=== PATIENT | female | born 1995 | race African-American/Black ===

== ENCOUNTER 2017-08-07 02:51 | Emergency (ER) | payer OTHER ==
[~2017-08-07] VITALS: Ht 165.1 cm; Wt 71.0 kg
[~2017-08-07 02:51] MED LIST: CLIN150 PO; DICL50TA3 PO
[2017-08-07] MEDS ORDERED: IOHEXOL 350 MG/ML 10 ML VIAL (for RAD DIAG) IVCONTRAST ONE (02:52)
[2017-08-07 02:53] VITALS: BP 114/55; PULSE 119; RESP 20; TEMP 102.2; O2SAT 98
[2017-08-07] MEDS ORDERED: SODIUM CHLOR 0.9% 1000 ML INJ 1,000 ML IV SCH (03:14)
[2017-08-07] MEDS ORDERED: SODIUM CHLORIDE 0.9% FLUSH 10 ML FLUSH IV FLUSH PRN (03:15)
[2017-08-07] MEDS ORDERED: ACETAMINOPHEN 325 MG TAB PO ONE (03:15)
[2017-08-07] MEDS ORDERED: METOCLOPRAMIDE HCL 10 MG/2 ML VIAL IV PUSH ONE (03:15)
[2017-08-07] MEDS ORDERED: KETOROLAC TROMETHAMINE 30 MG/ML (IVP) VIAL IV PUSH ONE (03:15)
--- NOTE | 2017-08-07 03:27 | PD ---
HPI Chief Complaint: Cold / Flu Symptoms Time Seen by Provider: 03:08 Travel History International Travel<30 days: No Contact w/Intl Traveler<30days: No Traveled to known affect area: No History of Present Illness HPI 22-year-old female here for evaluation of fever, chills, nausea, vomiting, headache, generalized malaise, abdominal pain. The patient is an employee here at the hospital. States that her son is admitted to the pediatric floor and diagnosed with Shigella. Patient's symptoms started yesterday. She has had about 4-5 episodes of loose bowel movements that she reports are nonbloody. She feels nauseous but has not vomited. Headache is diffuse, moderate, pressure -like. She has intermittent abdominal pain and states that it hurts her when she has to use a restroom. No urinary symptoms. No cough. PFSH Past Medical History Medical History: Denies Significant Hx Immunizations Current: Yes ?: Not LMP: 07/01/17 Menopausal: No Past Surgical History Surgical History: No Previous Surgery Social History Alcohol Use: No Tobacco Use: No Substance Use: No Allergies-Medications (Allergen,Severity, Reaction): Coded Allergies: No Known Allergies (Verified Adverse Reaction, Unknown, 08/07/17) Reported Meds & Prescriptions Reported Meds & Active Scripts Active Cipro (Ciprofloxacin HCl) 500 Mg Tab 500 Mg PO BID [address] (Diclofenac Sodium) 50 Mg Tabdr 50 Mg PO TID Cleocin (Clindamycin HCl) 150 Mg Cap 150 Mg PO Q6H Review of Systems Except as stated in HPI: all other systems reviewed are Neg Physical Exam Narrative GENERAL: Well-developed, well-nourished, pleasant, no apparent distress. SKIN: Focused skin assessment warm/dry. No rash. HEAD: Atraumatic. Normocephalic. EYES: Pupils equal and round. No scleral icterus. No injection or drainage. ENT: No nasal bleeding or discharge. Mucous membranes pink and dry. Normal pharynx. Bilateral tympanic membranes and external auditory canals are normal. NECK: Trachea midline. No JVD. No nuchal rigidity. CARDIOVASCULAR: Tachycardic, rate 110, regular. RESPIRATORY: No accessory muscle use. Clear to auscultation. Breath sounds equal bilaterally. GASTROINTESTINAL: Abdomen soft, nondistended. Mild diffuse tenderness without peritoneal signs. Normal bowel sounds. MUSCULOSKELETAL: No obvious deformities. No clubbing. No cyanosis. No edema. NEUROLOGICAL: Awake and alert. No obvious cranial nerve deficits. Motor grossly within normal limits. Normal speech. PSYCHIATRIC: Appropriate mood and affect; insight and judgment normal. Data Data Last Documented VS Vital Signs Date Time Temp Pulse Resp B/P (MAP) Pulse Ox O2 Delivery O2 Flow Rate FiO2 08/07/17 02:53 102.2 119 20 114/55 (74) 98 Orders Orders Complete Blood Count With Diff (08/07/17 03:14) Comprehensive Metabolic Panel (08/07/17 03:14) Lipase (08/07/17 03:14) Prothrombin Time / Inr (Pt) (08/07/17 03:14) Act Partial Throm Time (Ptt) (08/07/17 03:14) Urinalysis - C+S If Indicated (08/07/17 03:14) Ct Abd/Pel W Iv Contrast(Rout) (08/07/17 03:14) Iv Access Insert/Monitor (08/07/17 03:14) Ecg Monitoring (08/07/17 03:14) Oximetry (08/07/17 03:14) Sodium Chlor 0.9% 1000 Ml Inj (Ns 1000 M (08/07/17 03:14) Sodium Chloride 0.9% Flush (Ns Flush) (08/07/17 03:15) Ed Urine Pregnancytest Poc (08/07/17 03:14) Acetaminophen (Tylenol) (08/07/17 03:15) Metoclopramide Inj (Reglan Inj) (08/07/17 03:15) Ketorolac Inj (Toradol Inj) (08/07/17 03:15) Influenzae A/B Antigen (08/07/17 03:14) Group A Rapid Strep Screen (08/07/17 03:14) Stool Ova And Parasite Screen (08/07/17 03:14) Stool Wbc (Leukocytes) (08/07/17 03:14) Enteric Path (Stool) (08/07/17 03:14) C Diff Toxin Pcr (08/07/17 03:14) Oral Contrast - Adult (08/07/17 03:19) Diatrizoate Liq ( Gastroadithya Liq) (08/07/17 03:45) Strep Culture (Group A) (08/07/17 03:30) Iohexol 350 Inj (Omnipaque 350 Inj) (08/07/17 02:52) Ceftriaxone Inj (Rocephin Inj) (08/07/17 06:00) Ciprofloxacin (Cipro) (08/07/17 06:00) Labs Laboratory Tests Test 08/07/17 03:30 08/07/17 05:00 White Blood Count 4.7 TH/MM3 Red Blood Count 4.14 MIL/MM3 Hemoglobin 12.2 GM/DL Hematocrit 35.9 % Mean Corpuscular Volume 86.8 FL Mean Corpuscular Hemoglobin 29.5 PG Mean Corpuscular Hemoglobin Concent 33.9 % Red Cell Distribution Width 12.6 % Platelet Count 169 TH/MM3 Mean Platelet Volume 9.1 FL Neutrophils (%) (Auto) 79.7 % Lymphocytes (%) (Auto) 10.3 % Monocytes (%) (Auto) 9.9 % Eosinophils (%) (Auto) 0.0 % Basophils (%) (Auto) 0.1 % Neutrophils # (Auto) 3.7 TH/MM3 Lymphocytes # (Auto) 0.5 TH/MM3 Monocytes # (Auto) 0.5 TH/MM3 Eosinophils # (Auto) 0.0 TH/MM3 Basophils # (Auto) 0.0 TH/MM3 CBC Comment DIFF FINAL Differential Comment Prothrombin Time 11.4 SEC Prothromb Time International Ratio 1.1 RATIO Activated Partial Thromboplast Time 27.6 SEC Urine Color YELLOW Urine Turbidity HAZY Urine pH 5.5 Urine Specific [place] 1.034 Urine Protein TRACE mg/dL Urine Glucose (UA) NEG mg/dL Urine Ketones NEG mg/dL Urine Occult Blood NEG Urine Nitrite NEG Urine Bilirubin NEG Urine Urobilinogen 2.0 MG/DL Urine Leukocyte Esterase MOD Urine WBC 2 /hpf Urine Squamous Epithelial Cells 74 /hpf Urine Bacteria RARE /hpf Urine Mucus MANY /lpf Microscopic Urinalysis Comment CULT NOT INDICATED Blood Urea Nitrogen 13 MG/DL Creatinine 0.83 MG/DL Random Glucose 105 MG/DL Total Protein 7.5 GM/DL Albumin 3.7 GM/DL Calcium Level 8.3 MG/DL Alkaline Phosphatase 86 U/L Aspartate Amino Transf (AST/SGOT) 10 U/L Alanine Aminotransferase (ALT/SGPT) 15 U/L Total Bilirubin 0.5 MG/DL Sodium Level 139 MEQ/L Potassium Level 3.4 MEQ/L Chloride Level 108 MEQ/L Carbon Dioxide Level 24.5 MEQ/L Anion Gap 7 MEQ/L Estimat Glomerular Filtration Rate 102 ML/MIN Lipase 97 U/L [facility] Medical Decision Making Medical Screen Exam Complete: Yes Emergency Medical Condition: Yes Differential Diagnosis Shigella, influenza, sepsis, viral illness, appendicitis, acute intra-abdominal pathology, dehydration, metabolic abnormality Narrative Course Initial vital signs show heart rate 119, blood pressure 114/55, pulse ox 98% on room air, oral temp of 102.2F. CBC: WBC 4.7, hemoglobin 12.2, hematocrit 35.9, platelets 169, neutrophils 79.7% . CMP is unremarkable. Lipase 97. UA: Rare bacteria, many mucus, moderate leuk esterase, negative nitrites. Influenza is negative. Group A strep is negative. CT abdomen pelvis: CONCLUSION: 1. Prominent left ovary. 2. Otherwise negative CT abdomen/pelvis with contrast. Patient was given a liter normal saline IV, IV Toradol, Tylenol, and on reassessment feels significantly improved. She was made aware of all findings. She states that her son did test positive for Shigella. She does not have bloody bowel movements, however she has been in contact with her son who is admitted to the pediatric floor here. Because of this exposure, I will give the patient a dose of 1 g of IV Rocephin here and will start her on Cipro. She was advised to stay hydrated with plenty of fluids and follow up with her primary care physician and organization development consultant this week. She was advised on when to return to the emergency department. She verbalizes understanding and agreement with plan. 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 Follow-up with your organization development consultant this week. See hydrated with plenty of fluids. Return to the emergency department for worsening symptoms or any other concerns. Scripts Ondansetron Odt (Zofran Odt) 4 Mg Tab 4 MG SL Q8HR Y for Nausea/Vomiting, #20 TAB 0 Refills Prov: Abhijeet Bentley MD 08/07/17 Ciprofloxacin (Cipro) 500 Mg Tab 500 MG PO BID for Infection for 7 Days, #14 TAB 0 Refills Prov: Abhijeet Bentley MD 08/07/17 Disposition: 01 DISCHARGE HOME Condition: Stable Abhijeet Bentley MD Aug 07, 2017 03:27
[2017-08-07] MEDS ORDERED: DIATRIZOATE MEGLUM/DIATRIZOATE SOD 9 ML CUP PO ONE (03:45)
[2017-08-07 03:49] LABS: AUTOMATED NEUTROPHIL # 3.7 TH/MM3 (1.8-7.7); BASOPHIL % 0.1 % (0.0-2.0); HEMATOCRIT 35.9 % (35.0-46.0); HEMOGLOBIN 12.2 GM/DL (11.6-15.3); LYMPH % 10.3 % (9.0-44.0); LYMPHOCYTE # 0.5 TH/MM3 (1.0-4.8); MEAN CELL VOLUME 86.8 FL (80.0-100.0); MEAN CORPUSCULAR HEMOGLOBIN 29.5 PG (27.0-34.0); MEAN CORPUSCULAR HGB CONC 33.9 % (32.0-36.0); MEAN PLATELET VOLUME 9.1 FL (7.0-11.0); MONO % 9.9 % (0.0-8.0); MONOCYTE # 0.5 TH/MM3 (0-0.9); NEUT % 79.7 % (16.0-70.0); PLATELET COUNT 169 TH/MM3 (150-450); RED BLOOD COUNT 4.14 MIL/MM3 (4.00-5.30); RED CELL DISTRIBUTION WIDTH 12.6 % (11.6-17.2); WHITE BLOOD COUNT 4.7 TH/MM3 (4.0-11.0)
[2017-08-07 04:01] LABS: BACTERIA, URINE RARE /hpf; BILIRUBIN, URINE NEG (NEG); BLOOD, URINE NEG (NEG); GLUCOSE,URINE NEG (NEG); KETONE, URINE NEG (NEG); MUCUS URINE MANY /lpf (OCC); NITRITE,URINE NEG (NEG); PH, URINE 5.5 (5.0-8.5); SQUAMOUS EPITHELIAL CELL URINE 74 /hpf (0-5); URINE COLOR YELLOW (YELLW/STRAW); URINE LEUKOCYTE ESTERASE MOD (NEG)
[2017-08-07 04:08] LABS: INTERNATIONAL NORMALIZED RATIO 1.1 RATIO; PROTHROMBIN TIME - PATIENT 11.4 SEC (9.8-11.6)
[2017-08-07 04:10] LABS: ALBUMIN 3.7 GM/DL (3.4-5.0); ALT (GPT) 15 U/L (10-53); AST (GOT) 10 U/L (15-37); BICARBONATE 24.5 MEQ/L (21.0-32.0); BLOOD UREA NITROGEN 13 MG/DL (7-18); CALCIUM 8.3 MG/DL (8.5-10.1); CHLORIDE 108 MEQ/L (98-107); CREATININE 0.83 MG/DL (0.50-1.00); GLOMERULAR FILTRATION RATE 102 ML/MIN (>89); GLUCOSE,RANDOM 105 MG/DL (74-106); SODIUM (NA) 139 MEQ/L (136-145)
[2017-08-07 04:12] LABS: ALKALINE PHOSPHATASE 86 U/L (45-117); TOTAL BILIRUBIN ADULT 0.5 MG/DL (0.2-1.0)
[2017-08-07 04:55] LABS: TOTAL PROTEIN 7.5 GM/DL (6.4-8.2)
[2017-08-07] MEDS ORDERED: cefTRIAXone INJ 1,000 MG in SODIUM CHLORIDE 0.9% INJ 100 ML IV ONE (06:00)
[2017-08-07] MEDS ORDERED: CIPROFLOXACIN 500 MG TAB PO ONE (06:00)
--- NOTE | 2017-08-07 06:23 | RADRPT ---
EXAM DATE/TIME: 08/07/2017 05:18 [facility] COMPARISON: No previous studies available for comparison. INDICATIONS : Abdomen pain with diarrhea. IV CONTRAST: 95 cc Omnipaque 350 (iohexol) IV ORAL CONTRAST: Prescribed oral contrast ingested. RADIATION DOSE: 6.79 CTDIvol (mGy) MEDICAL HISTORY : None SURGICAL HISTORY : None. ENCOUNTER: Initial ACUITY: 3 days PAIN SCALE: 5/10 LOCATION: abdomen TECHNIQUE: Volumetric scanning of the abdomen and pelvis was performed. Using automated exposure control and ad justment of the mA and/or kV according to patient size, radiation dose was kept as low as reasonably achievable to obtain optimal diagnostic quality images. DICOM format image data is available electro nically for review and comparison. FINDINGS: LOWER LUNGS: The visualized lower lungs are clear. LIVER: Homogeneous density without lesion. There is no dilation of the biliary tree. No calcified gallston es. SPLEEN: Normal size without lesion. PANCREAS: Within normal limits. KIDNEYS: Normal in size and shape. There is no mass, stone or hydronephrosis. ADRENAL GLANDS: Within normal limits. VASCULAR: There is no aortic aneurysm. BOWEL/MESENTERY: No dilated loops of small or large bowel. Oral contrast passes through to the cecum. ABDOMINAL WALL: Within normal limits. RETROPERITONEUM: There is no lymphadenopathy. BLADDER: No wall thickening or mass. REPRODUCTIVE: Anteverted uterus. Prominent left adnexa measuring up to 3.8 cm with focal areas of hypodensity sugg esting multiple ovarian cysts. No evidence of free fluid. INGUINAL: There is no lymphadenopathy or hernia. 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 Mild curvature of the lumbar spine convex towards the right. CONCLUSION: 1. Prominent left ovary. 2. Otherwise negative CT abdomen/pelvis with contrast. Bravo Dao MD on August 07, 2017 at 6:18 Board Certified Radiologist. This report was verified electronically.
[2017-08-07] MEDS ORDERED: CIPR-9 PO (06:30)
[2017-08-07] MEDS ORDERED: ZOFR4TAB3 SL (06:31)
[2017-08-07 07:12] VITALS: BP 101/61; PULSE 90; RESP 18; O2SAT 100
== END 2017-08-07 07:30 | disposition home or self-care (01) ==
LOC: NEPE 02:51
DX: K52.9 Noninfective gastroenteritis and colitis, unspecified (principal); B96.89 Other specified bacterial agents as the cause of diseases classified elsewhere; N83.202 Unspecified ovarian cyst, left side; Z79.899 Other long term (current) drug therapy
CPT/HCPCS: 74177; 80053; 81001; 83690; 84703; 85025; 85610; 85730; 87081; 87205; 87328; 87329; 87493; 87506; 87804; 87880; 96361; 96365; 96375; 99284; J0696; J1885; J2765; J7030; Q9963; Q9967